=== PATIENT | female | born 1975 | race Caucasian/White ===

== ENCOUNTER 2018-12-27 19:51 | Emergency (ER) | payer OTHER ==
[~2018-12-27] VITALS: Ht 167.6 cm; Wt 99.8 kg
[2018-12-27 19:57] VITALS: Ht 167.6 cm; Wt 99.8 kg
[2018-12-27 23:10] LABS: BASOPHIL % 0.2 % (0-2); PLATELET COUNT 316 x10^3mcL (130-400); RED CELL DISTRIBUTION WIDTH 13.9 % (11.5-14.5)
[2018-12-27 23:31] LABS: CALCIUM 9.4 mg/dL (8.5-10.1); CARBON DIOXIDE 25.9 mmol/L (21-32); CHLORIDE SERUM 105 mmol/L (98-107); CREATININE SERUM 0.9 mg/dL (0.6-1.0); GFR1 > 60 mL/min; GLUCOSE SERUM 105 mg/dL (74-106); POTASSIUM SERUM 3.9 mmol/L (3.5-5.1); SODIUM SERUM 140 mmol/L (136-145)
[2018-12-27 23:38] LABS: ALKALINE PHOSPHATASE 65 U/L (46-116); ALT/SGPT 37 U/L (14-59); AST/SGOT 24 U/L (15-37); BILIRUBIN TOTAL 0.8 mg/dL (0.20-1.00); FREE T4 0.86 ng/dL (0.76-1.46)
[2018-12-27 23:39] LABS: TOTAL PROTEIN, SERUM 8.4 g/dL (6.4-8.2)
[2018-12-28 00:14] LABS: microscopic required? NO
[2018-12-28 00:24] LABS: urine erythrocyte NEGATIVE (NEGATIVE)
[2018-12-28 00:50] VITALS: BP 127/86
[2018-12-28 00:58] LABS: AMPHETAMINE QUAL UR NONE DETECTED (See below)
== END 2018-12-28 00:51 | disposition home or self-care (01) ==
LOC: ED 19:51
PROVIDERS: Emergency Medicine
DX: R00.2 Palpitations (principal); F41.9 Anxiety disorder, unspecified
CPT/HCPCS: 36415; 84439